=== PATIENT | male | born 1950 | race Caucasian/White ===

== ENCOUNTER 2024-06-23 19:02 | Emergency (ER) | payer BC, MEDICARE ==
[~2024-06-23] VITALS: Ht 167.6 cm; Wt 72.6 kg
[~2024-06-23 19:02] MED LIST: HYDR12.5 PO; LISI40TA13 PO
[2024-06-23 19:10] VITALS: BP_SYST 113; PULSE 102; RESP 20; TEMP 97.5; O2SAT 94
[2024-06-24 00:45] VITALS: BP_SYST 132; PULSE 60; RESP 18; TEMP 97.6; O2SAT 96
== END 2024-06-24 00:45 | disposition home or self-care (01) ==
LOC: SED 19:02
DX: S01.111A Laceration without foreign body of right eyelid and periocular area, initial encounter (principal); F10.129 Alcohol abuse with intoxication, unspecified; I10 Essential (primary) hypertension; Z79.899 Other long term (current) drug therapy; W18.39XA Other fall on same level, initial encounter; Y93.89 Activity, other specified; Y92.89 Other specified places as the place of occurrence of the external cause; Y99.8 Other external cause status; Y90.9 Presence of alcohol in blood, level not specified
CPT/HCPCS: 70450-TC; 99284